=== PATIENT | female | born 2005 | race Hispanic/Latino ===

== ENCOUNTER → 2024-12-22 09:14 | Outpatient (REF) | payer OTHER, SELFPAY ==
[2024-12-24 23:51] LABS: Chlamydia trachomatis,ThinPrep Negative (Negative); Neisseria gonorrhoeae,ThinPrep Negative (Negative); Specimen Source Cervical
== END ==
LOC: CLINIC 09:14
PROVIDERS: ATTENDING PHYSICIAN Nurse Practitioner Adult Health
DX: Z12.4 Encounter for screening for malignant neoplasm of cervix (principal)
CPT/HCPCS: 87491; 87591; G0123